=== PATIENT | male | born 2005 | race Caucasian/White ===

== ENCOUNTER 2024-01-18 09:39 | Emergency (ER) | payer MEDICAID ==
[~2024-01-18] VITALS: Ht 175.3 cm; Wt 118.6 kg
[2024-01-18] MEDS ORDERED: Ketorolac 30 MG/ML VIAL IM ONE (11:00)
[2024-01-18] MEDS ORDERED: KETOROLAC10 MG PO (11:28)
[2024-01-18 11:36] VITALS: BP 142/70
== END 2024-01-18 11:36 | disposition home or self-care (01) ==
LOC: EDBD 09:39 → ED 09:39
DX: S93.402A Sprain of unspecified ligament of left ankle, initial encounter (principal); V23.49XA Other motorcycle driver injured in collision with car, pick-up truck or van in traffic accident, initial encounter; Y92.410 Unspecified street and highway as the place of occurrence of the external cause
CPT/HCPCS: J1885